=== PATIENT | female | born 1980 | race Caucasian/White ===

== ENCOUNTER 2017-06-05 12:15 | Inpatient (IN) | payer BC, MEDICAID ==
[~2017-06-05] VITALS: Ht 167.6 cm; Wt 68.2 kg
[~2017-06-05 12:15] MED LIST: PRENAT PO
[2017-06-05 13:13] LABS: BASOPHILS % 0.1 % (0.0-2.0); EOSINOPHILS % 0.1 % (0.0-7.0); HEMATOCRIT 30.7 % (37.0-47.0); HEMOGLOBIN 10.4 g/dl (12.0-16.0); LYMPHOCYTES # 1.3 10^3/ul (0.8-2.9); LYMPHOCYTES % 16.3 % (15.0-51.0); MEAN CORPUSCULAR HEMOGLOBIN 29.6 pg (29.0-33.0); MEAN CORPUSCULAR HGB CONC 33.9 g/dl (32.0-37.0); MEAN CORPUSCULAR VOLUME 87.5 fl (82.0-101.0); MEAN PLATELET VOLUME 9.9 fl (7.4-10.4); MONOCYTE # 0.6 10^3/ul (0.3-0.9); PLATELET COUNT 210 10^3/UL (140-415); RED BLOOD COUNT 3.51 10^6/ul (4.20-5.40); RED CELL DISTRIBUTION WIDTH 12.9 % (11.5-14.5); WHITE BLOOD COUNT 7.9 10^3/ul (4.8-10.8)
--- NOTE | 2017-06-05 13:33 | RADRPT ---
PROCEDURE: US OB AND ULTRASOUND CERVIX. CLINICAL INDICATION: Size and dates , flank pain TECHNIQUE: Multiple sonographic images of the pelvis and gravid uterus were obtained. The images were reviewed on a PACS workstation. Transvaginal images of the cervix were also obtained. COMPARISON: US 04/03/2016 FINDINGS: The cervix has a length of 3.8 cm. There is a single viable intrauterine gestation. Cardiac activity is present with 156 beats per min pilot point. There is a vertex presentation. The placenta is posterior. There is no evidence for an abruption or placenta previa. Measurements were made in order to determine age. The results are as follows: BPD =6.6 cm HC =24.4 cm AC =21.9 cm FL =4.6 cm Estimated gestational age of approximately 26 weeks and 1 day based on ultrasound measurements. Clinical age: 26 weeks and 0 days. The estimated date of delivery is 09/10/17, based on ultrasound measurements. The EFW = 879 g, 38.5%, based on LMP age. RPTAT: AA IMPRESSION: Single viable intrauterine gestation of approximately 26 weeks and 1 day based on ultrasound measur ements. .Jayme Ramirez MD, MD Date Time Electronically viewed and signed by .Jayme Ramirez MD, on 06/05/2017 13:33 .S/
[2017-06-05 14:12] LABS: ADD UMIC NO; UR ASCORBIC ACID NEGATIVE (NEGATIVE); UR BILIRUBIN (Dip) NEGATIVE (NEGATIVE); UR BLOOD (Dip) NEGATIVE (NEGATIVE); UR CLARITY CLEAR (CLEAR); UR COLOR YELLOW (YELLOW); UR GLUCOSE (Dip) NEGATIVE (NEGATIVE); UR KETONES (Dip) 2+ mg/dL (NEGATIVE); UR LEUKOCYTE ESTERASE (Dip) NEGATIVE Leu/ul (NEGATIVE); UR NITRITE (Dip) NEGATIVE (NEGATIVE); UR SPECIFIC GRAVITY (Dip) 1.017 (1.003-1.030); UR TOTAL PROTEIN (Dip) NEGATIVE (NEGATIVE); UR UROBILINOGEN (Dip) NEGATIVE (NEGATIVE)
--- NOTE | 2017-06-05 15:00 | HP ---
Date/Time of Note Date/Time of Note DATE: 06/05/17 TIME: 14:58 OB - History Hx of Present Free Text/Dictation 26+wks pyelonephritis : 3 Para: 1 Care: Good Care Ultrasounds: Normal mid trimester US Obstetrical Complications: None Medical Complications: None Past Family/Social History * Past Medical, Surgical, Family and Obstetric Histories reviewed from chart. OB Admission Exam Physical Exam Abdomen: WNL Extremities: Normal Reflexes: Normal Membranes: Intact Heart Rate: 140's Accelerations: Accelerations Present Decelerations: No Decelerations Varibility: Moderate Contractions on Admission: None Last 72 hours Lab Results CBC & BMP 06/05/17 12:50 OB Assessment/Plan Reason for admission: observation Plan: Expectant Management Other plan: +Right CVA tenderness -->Ancef -->Perinatology consult -->Urine culture ANGÉLICA SEVILLA M.D. Jun 05, 2017 15:00
[2017-06-05 16:30] VITALS: Ht 167.6 cm; Wt 68.2 kg
[2017-06-05] MEDS ORDERED: ACETAMINOPHEN 325 MG TAB PO PRN (16:30)
[2017-06-05] MEDS: LACTATED RINGER'S 1,000 ML IV SCH ×2 (16:41→23:47)
[2017-06-05] MEDS: CEFAZOLIN 2 GM/50 ML (PMX) 50 ML IV SCH (16:41)
[2017-06-06] MEDS: CEFAZOLIN 2 GM/50 ML (PMX) 50 ML IV SCH ×3 (01:14→17:03)
[2017-06-06] MEDS: LACTATED RINGER'S 1,000 ML IV SCH ×2 (07:42→17:03)
[2017-06-06] MEDS ORDERED: PRENATAL VITAMIN PO SCH (09:00)
[2017-06-06] MEDS: FERROUS SULFATE (EC) 325 MG TAB PO SCH ×3 (09:00→20:55)
[2017-06-06] MEDS: PRENATAL VITAMIN PO SCH (09:11)
[2017-06-06] MEDS: DOCUSATE SODIUM 100 MG CAP PO SCH (09:12)
--- NOTE | 2017-06-06 10:29 | RADRPT ---
PROCEDURE: Retroperitoneal US. CLINICAL INDICATION: LEFT LOWER FLANK PAIN, TECHNIQUE: Multiple sonographic images of the retroperitoneum were obtained. The images were revi ewed on a PACS workstation. COMPARISON: No prior studies are available for comparison. FINDINGS: The right kidney measures 11.9 x 5.6 x 6.3 cm. The left kidney measures 11.9 x 5.0 x 5.0 cm. The renal parenchymal echotexture is normal. There is no hydronephrosis. There is no focal renal mass or calcification seen. The bladder is unremarkable. Bilateral ureteral jets are identified. IMPRESSION: Unremarkable retroperitoneal sonogram. No hydronephrosis bilaterally. Bilateral ureteral jets are identified. RPTAT: EE Physician Ronal Date Time Electronically viewed and signed by Physician Ronal on 06/06/2017 10:29 /
--- NOTE | 2017-06-06 11:46 | PN ---
Date/Time of Note Date/Time of Note DATE: 06/06/17 TIME: 11:42 OB Subjective Subjective Subjective Patient reports improvement of her left flank pain. Denies any nausea and vomiting. Denies any fever or chills. Reports had yesterday left lower flank pain as well as numbness in lower extremity that currently resolved. Denies any urinary symptoms. Reports a history of kidney stone about 10 years ago. OB Objective Objective Objective Appears: Alert and oriented 4. Does not appear to be in any acute distress. Next Abdomen: Soft, gravid, fundal height consistent with gestational age. No uterine tenderness or abdominal tenderness, no guarding no rebound tenderness no rigidity There is a CVA tenderness in the left side NST: Appropriate for gestational age, occasional rare contraction on the monitor Gait normal Neuro exam: Normal Normal muscle tone of lower extremity, normal neurological exam UA negative Hematology - 72 Hrs Test 06/05/17 12:50 White Blood Count 7.910^3/ul (4.8-10.8) Red Blood Count 3.5110^6/ul (4.20-5.40) L Hemoglobin 10.4g/dl (12.0-16.0) L Hematocrit 30.7% (37.0-47.0) L Mean Corpuscular Volume 87.5fl (82.0-101.0) Mean Corpuscular Hemoglobin 29.6pg (29.0-33.0) Mean Corpuscular Hemoglobin Concent 33.9g/dl (32.0-37.0) Red Cell Distribution Width 12.9% (11.5-14.5) Platelet Count 22394^3/UL (140-415) Mean Platelet Volume 9.9fl (7.4-10.4) Neutrophils % 76.0% (39.0-77.0) Lymphocytes % 16.3% (15.0-51.0) Monocytes % 7.0% (0.0-11.0) Eosinophils % 0.1% (0.0-7.0) Basophils % 0.1% (0.0-2.0) Nucleated Red Blood Cells % 0.0/100WBC (0.0-0.0) Neutrophils # 6.010^3/ul (1.6-7.5) Lymphocytes # 1.310^3/ul (0.8-2.9) Monocytes # 0.610^3/ul (0.3-0.9) Eosinophils # 0.010^3/ul (0.0-0.5) Basophils # 0.010^3/ul (0.0-0.1) Nucleated Red Blood Cells # 0.010^3/ul (0.0-0.0) OB Assessment/Plan Other Assessment: 26 weeks and 1 day Left flank pain Admitted for suspected pyelonephritis patient had been afebrile, urine is clean On antibiotics Urine culture pending Cannot rule out renal colic or muscular cramps since the patient has been afebrile, and UA is negative Mild anemia, related, asymptomatic Consider ultrasound of kidneys Follow-up with the urine culture Expectant management Follow-up with the ultrasound Continue IV hydration NST every shift patient verbalized understanding plan of care TATIANA BUENO MD Jun 06, 2017 11:46
[2017-06-06 12:12] LABS: BASOPHILS % 0.2 % (0.0-2.0); EOSINOPHILS % 0.2 % (0.0-7.0); HEMATOCRIT 30.9 % (37.0-47.0); HEMOGLOBIN 10.5 g/dl (12.0-16.0); LYMPHOCYTES # 1.2 10^3/ul (0.8-2.9); LYMPHOCYTES % 20.4 % (15.0-51.0); MEAN CORPUSCULAR HEMOGLOBIN 29.7 pg (29.0-33.0); MEAN CORPUSCULAR VOLUME 87.5 fl (82.0-101.0); MEAN PLATELET VOLUME 10.2 fl (7.4-10.4); MONOCYTE # 0.4 10^3/ul (0.3-0.9); MONOCYTES % 7.3 % (0.0-11.0); NEUTROPHIL # 4.2 10^3/ul (1.6-7.5); NEUTROPHILS % 71.4 % (39.0-77.0); PLATELET COUNT 210 10^3/UL (140-415); RED BLOOD COUNT 3.53 10^6/ul (4.20-5.40); RED CELL DISTRIBUTION WIDTH 13.1 % (11.5-14.5); WHITE BLOOD COUNT 5.9 10^3/ul (4.8-10.8)
[2017-06-07] MEDS: CEFAZOLIN 2 GM/50 ML (PMX) 50 ML IV SCH ×2 (00:51→09:37)
[2017-06-07] MEDS: LACTATED RINGER'S 1,000 ML IV SCH ×3 (00:55→20:08)
[2017-06-07] MEDS: PRENATAL VITAMIN PO SCH (09:35)
[2017-06-07] MEDS: FERROUS SULFATE (EC) 325 MG TAB PO SCH ×2 (09:35→20:13)
[2017-06-07] MEDS: DOCUSATE SODIUM 100 MG CAP PO SCH (09:35)
[2017-06-07] MEDS: AMPICILLIN 2 GM/NS (PMX) 100 ML IVPB SCH ×2 (14:18→20:13)
--- NOTE | 2017-06-07 14:41 | CONS ---
Date/Time of Note Date/Time of Note DATE: 06/07/17 TIME: 13:39 Consultation Date/Type/Reason Admit Date/Time June 07, 2017 Hospital consult . This patient is a 36 years old 3 para 2 with past 2 normal spontaneous vaginal delivery her estimated date of confinement is September 11, 2016 which makes her 26 weeks and 2 days today She came to triage complaining of left flank pain. On physical examination her general vital signs were normal with blood pressure 119/75, pulse rate of 86 and, respiration 19, with normal body temperature. However on examination she had a fairly sharp right costal vertebral angle tenderness as well as a slight abdominal pain on the underside she was subsequently admitted in the hospital And some workup was done CBC showed mild degree of anemia with hemoglobin of 10.4 hematocrit 30.7 her urinalysis did show 2+ Vania ultrasound examination the report was a single viable intrauterine gestation with cardiac activity 156 bpm in vertex presentation placenta was posterior. Her estimated gestational age was reported approximately 26 weeks and 1 day estimated weight was 879 g which makes her 38.5 percentile on ultrasonography of the kidneys both kidneys were around 100.9 x 5.6 x 6.3 cm with no evidence of hydronephrosis no focal renal mass or calcification her fibronectin was negative Current Medications Medications (Trade) Dose Ordered Sig/Tucker Route PRN Reason Start Time Stop Time Status Last Admin Dose Admin Lactated Ringer's 1,000 ml @ 125 mls/hr Q8H IV 06/05/17 16:21 06/07/17 09:38 Cefazolin Sodium/ Dextrose (Ancef 2 Gm/50 ml (Pmx)) 50 ml @ 100 mls/hr Q8 IV 06/05/17 16:30 06/07/17 13:43 DC 06/07/17 09:37 Prenat Multivit/ [place]/Iron/Folic Ac () 1 tab DAILY PO 06/06/17 09:00 06/06/17 09:00 DC Ferrous Sulfate (Ferrous Sulfate (Ec)) 325 mg BID PO 06/05/17 21:00 06/07/17 09:35 Docusate Sodium (Colace) 100 mg DAILY PO 06/06/17 09:00 06/07/17 09:35 Acetaminophen (Tylenol Tab) 650 mg Q4H PRN PO PAIN AND OR ELEVATED TEMP 06/05/17 16:30 Prenat Multivit/ [employer] Supervisor/Iron/Folic Ac 1 tab 1 tab DAILY PO 06/06/17 09:00 06/07/17 09:35 Ampicillin (Ampicillin 2 Gm/ NS (Pmx)) 100 ml @ 100 mls/hr Q6 IVPB 06/07/17 14:00 06/07/17 14:18 . Initial Consult Date Reason for Consultation On examination today her abdomen is soft heart tone is normal she does not have any contraction or chest is clear on examination her right costovertebral angle is sharply tender no tenderness on the right side no abdominal open suprapubic tenderness her preliminary urine culture sensitivity report was a strep agalactiae group B about 50-60,000 colonies CFU/Ml . The sensitivity test however was performed indicating that the strep is usually susceptible to penicillin. However in consultation with peritoneal cytology Dr. Sabillon decision was made to go ahead and to do the sensitivity test mostly due to her condition condition and the left costovertebral angle tenderness. However antibiotic for now was switched to ampicillin every 6 hours 2 g IV. Exam/Review of Systems Vital Signs Vitals Intake and Output 06/06/17 06/06/17 06/07/17 15:00 23:00 07:00 Intake Total 852.5 ml 1800 ml 1200 ml Output Total 700 ml 1700 ml Balance 852.5 ml 1100 ml -500 ml Results Result Diagram: 06/06/17 1112 Medications Medications Current Medications Lactated Ringer's 1,000 ml @ 125 mls/hr Q8H IV Last administered on 09:38; Admin Dose 125 MLS/HR; Start 06/05/17 at 16:21 Cefazolin Sodium/ Dextrose (Ancef 2 Gm/50 ml (Pmx)) 50 ml @ 100 mls/hr Q8 IV Last administered on 06/07/17 09:37; Admin Dose 100 MLS/HR; Start 06/05/17 at 16:30 Ferrous Sulfate (Ferrous Sulfate (Ec)) 325 mg BID PO Last administered on 06/07 09:35; Admin Dose 325 MG; Start 06/05/17 at 21:00 Docusate Sodium (Colace) 100 mg DAILY PO Last administered on 06/07/17 09:35 ; Admin Dose 100 MG; Start 06/06/17 at 09:00 Acetaminophen (Tylenol Tab) 650 mg Q4H PRN PO PAIN AND OR ELEVATED TEMP; Start 06/05/17 at 16:30 Prenat Multivit/ [place]/Iron/Folic Ac () 1 tab DAILY PO Last administered on 06/07/17t 09:35; Admin Dose 1 TAB; Start 06/06/17 at 09:00 CHELSEY SANCHEZ MD Jun 07, 2017 13:49
[2017-06-07] MEDS ORDERED: CALC-143 PO (15:09)
[2017-06-07] MEDS ORDERED: IRON1TAB78 PO (15:10)
[2017-06-08] MEDS: LACTATED RINGER'S 1,000 ML IV SCH ×2 (00:21→06:07)
[2017-06-08] MEDS: AMPICILLIN 2 GM/NS (PMX) 100 ML IVPB SCH ×2 (01:04→06:06)
[2017-06-08] MEDS: FERROUS SULFATE (EC) 325 MG TAB PO SCH (08:42)
[2017-06-08] MEDS: PRENATAL VITAMIN PO SCH (08:42)
[2017-06-08] MEDS: DOCUSATE SODIUM 100 MG CAP PO SCH (08:42)
[2017-06-08] MEDS ORDERED: CEPH500C PO (11:26)
--- NOTE | 2017-06-08 12:10 | QN ---
Documentation Comment Antepartum visit 26+wks is stable afebrile VSs table Last NST reassuring for GA No CTXs no complaints --->discharged with precautions Keflex given ANGÉLICA SEVILLA M.D. Jun 08, 2017 12:10
--- NOTE | 2017-06-08 12:11 | DS ---
Date/Time of Note Date/Time of Note DATE: 06/08/17 TIME: 12:10 Discharge Summary Admission/Discharge Info Admit Date/Time Jun 05, 2017 at 14:41 Discharge Date/Time 06/08/2017 Discharge Diagnosis pyelonephritis Patient Condition: Good Hospital Course uneventful Home Meds Reported Medications Cephalexin* (Cephalexin*) 500 Mg Capsule, 500 MG PO Q8, #21 CAP 06/08/17 Iron,Carbonyl/Vit C/Vit B12/Fa (IRON 100 PLUS TABLET) 1 Each Tablet, 1 EACH PO, TAB 06/07/17 Calcium Citrate/Vitamin D (Citracal-Vitamin D 200 MG-250) 1 Each Tablet, 1 EACH PO, TAB 06/07/17 Multivit/Min/Fol Ac/Iron/Pren* ( S*) 1 Tab Tab, 1 TAB PO DAILY, TAB 04/03/16 Primary Care Provider ANGÉLICA Santos M.D. Jun 08, 2017 12:11
== END 2017-06-08 12:00 | disposition home or self-care (01) | DRG 781 ==
LOC: L-D 12:15 → OBT 12:15 → OBG 14:41 → OBT 14:46 → OBG 19:48
PROVIDERS: ADMIT Obstetrics & Gynecology; ATTEND Obstetrics & Gynecology
DX: O23.02 Infections of kidney in pregnancy, second trimester (principal); Z3A.26 26 weeks gestation of pregnancy
CPT/HCPCS: 36415; 76775; 76815; 76817; 81003; 82731; 85025; 86592; 86900; 86901; 87086; G0463; J0290; J0690; J7120

== ENCOUNTER 2017-12-28 17:17 | Emergency (ER) | END 2017-12-28 17:31 | disposition left against medical advice (07) ==

== ENCOUNTER 2018-05-31 09:27 | Emergency (ER) | END 2018-05-31 10:25 | disposition home or self-care (01) ==